=== PATIENT | male | born 1995 | race Caucasian/White ===

== ENCOUNTER 2016-12-01 00:05 | Emergency (ER) | payer OTHER ==
[2016-12-01 00:11] VITALS: BP 148/90; PULSE 108; RESP 12; TEMP 98.6; O2SAT 97
--- NOTE | 2016-12-01 00:31 | EDPHY ---
H & P Time Seen by Provider: 12/01/16 00:16 HPI/ROS: CHIEF COMPLAINT: Laceration left hand HISTORY OF PRESENT ILLNESS: 21-year-old male presents to the emergency department with injury to the left hand. Patient was at work just prior to arrival and cut his left hand on the top of the jar. He is right-hand dominant. His last tetanus shot was 3 years ago. Describes the pain as mild. ROS: Denies numbness or tingling in his fingers, retained foreign body. 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 There is no active bleeding noted. No palpable bony tenderness. No evidence of retained foreign body. No tendon injury identified. The rest of the hand appears on injured. Normal sensation to light touch with normal 2 point discrimination. Constitutional: Initial Vital Signs Temperature (C) 37 C 12/01/16 00:08 Heart Rate 108 H 12/01/16 00:08 Respiratory Rate 12 12/01/16 00:08 Blood Pressure 148/90 H 12/01/16 00:08 O2 Sat (%) 97 12/01/16 00:08 O2 Delivery Mode Room Air Allergies/Adverse Reactions: No Known Allergies Allergy (Unverified 12/01/16 00:08) Home Medications: Medication Instructions Recorded NK [No Known Home Meds] 12/01/16 MDM/Departure - MDM Procedures: Laceration repair. Verbal consent was obtained from the patient. The 2 cm laceration on the left hand was anesthetized using 1% lidocaine with epinephrine. The wound was irrigated with saline, draped and explored to its base with a gloved finger. There were no deep structures involved. No tendon injury was identified. The wound was repaired with 4 0 Ethilon, 4 sutures. The wound repair was simple. The procedure was performed by myself. ED Course/Re-evaluation: 21-year-old male presents with left hand injury. See procedure note. The patient was given wound care precautions and will return if he notices any signs or symptoms of infection. - Depart Disposition: Home, Routine, Self-Care Clinical Impression: Laceration of left hand Qualifiers: Encounter type: initial encounter Qualified Code(s): S61.412A - Laceration without foreign body of left hand, initial encounter Condition: Good Instructions: Care For Your Stitches (ED), Laceration (ED), Acute Wounds (ED) Additional Instructions: Wound Care Follow-Up: Removal of sutures in 10 days. Suture removal is complimentary in uncomplicated cases. Infection or abnormal findings would require reevaluation by the MD. In that case, you may be billed. Keep wound dry, clean and protected especially while working. Return to the emergency department if you develop any signs or symptoms of infection or any other concerns. Referrals: Work Comp Ref/Restrictions [Outside] - As per Instructions
== END 2016-12-10 14:05 | disposition home or self-care (01) ==
PROC: 0HQGXZZ Repair Left Hand Skin, External Approach (ICD-10-PCS; principal; 2016-12-01)
DX: S61.412A Laceration without foreign body of left hand, initial encounter (principal); F17.200 Nicotine dependence, unspecified, uncomplicated; W26.8XXA Contact with other sharp object(s), not elsewhere classified, initial encounter; Y92.69 Other specified industrial and construction area as the place of occurrence of the external cause; Y99.0 Civilian activity done for income or pay; Y93.89 Activity, other specified